=== PATIENT | male | born 1995 | race Caucasian/White ===

== ENCOUNTER 2019-08-31 10:01 | Emergency (ER) | payer SELFPAY ==
[2019-08-31 10:02] VITALS: BP 135/85; PULSE 100; RESP 16; TEMP 36.4; O2SAT 99; BMI 25.1
[2019-08-31 10:20] VITALS: RESP 17
--- NOTE | 2019-08-31 10:21 | ED.VIS.INJ ---
History of Present Illness Chief Complaint: Laceration Informant: Patient Onset: Today Mechanism/Context: Incised Quality of Pain: Aching Associated Symptoms: Negative for: Parasthesias, Weakness, Loss of function Narrative: Patient is a 24-year-old male with no past medical history presenting with laceration to his right thumb. 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 Patient is right-hand dominant. This happened just prior to arrival when he came to the emergency room for further evaluation. Patient denies associated numbness or tingling. He denies any other injuries. He states his tetanus was either in 2016 or 2017. He denies any other complaints at this time. Tetanus Immunization: <5 years Past Medical History - Allergies and Home Meds Allergies/Adverse Reactions: Allergies amoxicillin Allergy (Verified 08/31/19 10:03) Hives Primary Care Physician: Nuria Ferguson MD [Primary Care Provider] - Past Medical History: None Surgical History: noncontributory Smoking Status: Current every day smoker Review of Systems General: Denies: Chills, Fever, Sweats Eyes: Denies: Visual changes - bilaterally, Diplopia ENT: Denies: Rhinorrhea, Sore throat Cardiovascular: Denies: Chest pain, Palpitations Respiratory: Denies: Dyspnea, Cough, Dyspnea on exertion Gastrointestinal: Denies: Abdominal pain, Nausea, Vomiting, Diarrhea, Melena, Hematochezia Genitourinary: Denies: Dysuria, Hematuria, Frequency Musculoskeletal: Denies: Back pain, Extremity Pain Skin: Reports: Wounds - Right thumb base. Denies: Rash Neurological: Denies: Headache, Weakness, Numbness Physical Exam Vital Signs/Narrative: Vital Signs Temp Pulse Resp BP Pulse Ox 08/31/19 10:02 97.6 F L 100 16 135/85 H 99 Inital Vital Signs reviewed: Yes General: Well nourished, Well developed Head: Normocephalic, Atraumatic Eyes: Perrl, EOMI Neck: Nontender, Full ROM Cardiovascular: Regular rate, Regular rhythm, No murmurs Respiratory: No distress, CTA bilaterally Back: Nontender Extremeties: Laceration to the right thenar eminence. Normal range of motion. Normal strength and sensation of the thumb. Normal flexion and extension of the thumb. No other deformity or bony abnormality. Skin: Normal color, No rash, Trauma - 4 cm full-thickness linear laceration over the right thenar eminence, lateral aspect with exposure of the muscle belly with 5 mm laceration in the muscle itself Neurological: Alert, Oriented x3, Cranial nerves II-XII grossly intact, Normal Strength, Normal Sensation Psychological: Normal affect Diagnostic/Tx/Re-eval - Medical Decision Making Patient sustained laceration to right thenar eminence. Once anesthetized and on further evaluation patient does have a laceration of the belly of the muscle as well. He seems to be neuro vastly intact. Does not have any appreciable weakness of the thumb. See procedure note for suture repair. Counseled on wound care and need for suture removal in 7 to 10 days. Tetanus is up-to-date. Laceration No standard instances Length: 1.57 in Depth: Muscle Shape: Linear Prep: Sterile Conditions, Ree-Florecita Laceration Repair: Lidocaine Irrigated (ml): 999 - running water Stitch Description: Ethilon, Simple - Complex laceration. 7 simple interrupted Ethilon with 4 oh. 2 deep 4-0 Vicryl absorbable is placed as well. Patient tolerated procedure well. Minimal blood loss. No immediate complications. ED Disposition - Plan for ED Patient: Disposition: Home or Assisted Living Diagnosis: Hand laceration Instructions: ED Laceration Hand Referrals: Nuria Ferguson MD [Primary Care Provider] - Additional Instructions: Take ibuprofen and or Tylenol as needed for pain. Your stitches need to be rechecked and likely removed in 7 to 10 days. Try to keep the wound clean. You can apply Vaseline ointment or bacitracin ointment as needed. Return with any signs of infection.
== END 2019-08-31 11:03 | disposition home or self-care (01) ==
LOC: ED 10:55
PROVIDERS: Emergency Provider Emergency Medicine; PCP Family Medicine
DX: S61.411A Laceration without foreign body of right hand, initial encounter (principal); W26.0XXA Contact with knife, initial encounter; F17.210 Nicotine dependence, cigarettes, uncomplicated
CPT/HCPCS: 12001; 99285